=== PATIENT | female | born 1960 ===

== ENCOUNTER 2017-03-22 20:08 | Emergency (ER) | payer MEDICAID, OTHER ==
[2017-03-22 20:15] VITALS: PULSE 95; RESP 16; TEMP 98.9; O2SAT 98
--- NOTE | 2017-03-22 21:12 | ED PDOC ---
HPI: General Adult Time Seen by Provider: 03/22/17 20:27 Chief Complaint (Nursing): Fever History Per: Patient Additional Complaint(s): Pt. states for the past 2 days she's had sore throat without cough or congestion. Also reports that 5 days ago she developed non-bloody vomiting and non-bloody watery diarrhea associated with crampy abdominal pain which all have since resolved 3 days ago. Denies fever, sick contacts, recent travel, BRBPR, hematemesis, melena, hematochezia. Past Medical History Reviewed: Historical Data, Nursing Documentation, Vital Signs Vital Signs: Last Vital Signs Temp 98.9 F 03/22/17 20:10 Pulse 95 H 03/22/17 20:10 Resp 16 03/22/17 20:10 BP 159/81 H 03/22/17 20:10 Pulse Ox 98 03/22/17 21:13 - Family History Family History: States: No Known Family Hx - Home Medications Home Medications: Ambulatory Orders Medication Instructions Recorded Naproxen [Naprosyn] 500 mg PO BID PRN #30 tab 03/22/17 - Allergies Allergies/Adverse Reactions: Allergies Allergy/AdvReac Type Severity Reaction Status Date / Time No Known Allergies Allergy Verified 03/22/17 20:15 Review of Systems ROS Statement: Except As Marked, All Systems Reviewed And Found Negative ENT: Positive for: Throat Pain Gastrointestinal: Positive for: Nausea, Vomiting, Abdominal Pain, Diarrhea Physical Exam - Reviewed Nursing Documentation Reviewed: Yes Vital Signs Reviewed: Yes - Physical Exam Appears: Positive for: Well, Non-toxic, No Acute Distress Head Exam: Positive for: ATRAUMATIC, NORMAL INSPECTION, NORMOCEPHALIC Skin: Positive for: Normal Color, Warm. Negative for: Rash Eye Exam: Positive for: EOMI, Normal appearance, PERRL ENT: Positive for: TM Is/Are (non-erythematous, non-bulging b/l), Pharyngeal Erythema, Other (able to swallow saliva; no trismus). Negative for: Nasal Congestion, Tonsillar Exudate, Tonsillar Swelling Neck: Positive for: Normal, Painless ROM Cardiovascular/Chest: Positive for: Regular Rate, Rhythm Respiratory: Positive for: CNT, Normal Breath Sounds Gastrointestinal/Abdominal: Positive for: Normal Exam, Soft. Negative for: Tenderness, Organomegaly Back: Positive for: Normal Inspection. Negative for: L CVA Tenderness, R CVA Tenderness Extremity: Positive for: Normal ROM Neurologic/Psych: Positive for: Alert, Oriented - ECG O2 Sat by Pulse Oximetry: 98 - Progress ED Course And Treament: Rapid strep, rapid flu: negative. Pt. informed of results. Do warm salt water gargles. Disposition - Clinical Impression Clinical Impression: Pharyngitis - Patient ED Disposition Is Patient to be Admitted: No - Disposition Referrals: [facility] [Outside] Disposition: Routine/Home Disposition Time: 21:59 Condition: STABLE Prescriptions: Naproxen [Naprosyn] 500 mg PO BID PRN #30 tab PRN Reason: Pain Instructions: Pharyngitis (ED) Print Language: KOREAN
[2017-03-22 22:17] VITALS: BP 125/80
== END 2017-03-22 22:01 | disposition home or self-care (01) ==
LOC: H.ER 20:08
DX: J02.9 Acute pharyngitis, unspecified (principal)